=== PATIENT | female | born 1995 | race Caucasian/White ===

== ENCOUNTER 2019-03-29 13:25 | Inpatient (IN) | payer MEDICAID, OTHER ==
[2019-03-29] MEDS ORDERED: Carboprost Tromethamine 250 MCG/1 ML Amp IM PRN (14:03)
[2019-03-29] MEDS ORDERED: Lidocaine 1% 50 ML MDV INJECT PRN (14:03)
[2019-03-29] MEDS ORDERED: Sodium Chloride 0.9% 2.5 ML Syringe FLUSH PRN (14:03)
[2019-03-29] MEDS ORDERED: Methylergonovine 0.2 MG/1 ML Amp IM PRN (14:03)
[2019-03-29] MEDS ORDERED: Sodium Chloride 0.9% 10 ML Syringe FLUSH PRN (14:03)
[2019-03-29] MEDS ORDERED: Sodium Chloride 0.9% 10 ML SDV IV PRN (14:03)
[2019-03-29] MEDS ORDERED: Misoprostol 200 MCG Tab PO PRN (14:03)
[2019-03-29] MEDS ORDERED: Nalbuphine 10 MG/1 ML Vial IVPUSH PRN (14:03)
[2019-03-29] MEDS ORDERED: Water For Irrigation,Sterile 1,000 ML Container IRR PRN (14:03)
[2019-03-29] MEDS ORDERED: Tranexamic Acid 1,000 MG in Sodium Chloride 0.9% 100 ML IV PRN (14:03)
[2019-03-29] MEDS ORDERED: Butorphanol 1 MG/ML SDV IVPUSH PRN (14:03)
[2019-03-29] MEDS ORDERED: Oxytocin/0.9 % Sodium Chloride 30 UNIT/500 ML BAG IV SCH (14:15)
[2019-03-29] MEDS ORDERED: Lactated Ringers 1,000 ML IV SCH (14:15)
[2019-03-29] MEDS ORDERED: Oxytocin/0.9 % Sodium Chloride 30 UNIT/500 ML BAG ONE (15:05)
--- NOTE | 2019-03-29 16:24 | PCM.LDHP ---
L&D History of Present Illness - General Date of Service: 03/29/19 Admit Problem/Dx: Patient Status Order with Admit Dx/Problem 03/29/19 13:35 Patient Status [ADT] Routine Admission Diagnosis/Problem Admission Diagnosis/Problem 03/29/19 16:21 23yo EDC 03/26/2019 40 3/7wks Hx of at 2 days old[address] Christina in the clinic. Comes in active labor. O+, RI, GBS neg. Source of Information: Patient History Limitations: Reports: No Limitations - History of Present Illness Timing/Duration: Reports: minutes: Location, : Reports: Abdomen Quality: Reports: Stabbing Severity: Severe Improves with: Reports: None Worsens with: Reports: None Associated Symptoms: Reports: N - Related Data Allergies/Adverse Reactions: Allergies Allergy/AdvReac Type Severity Reaction Status Date / Time No Known Allergies Allergy Verified 03/29/19 14:01 Past Medical History - Past Health History Medical/Surgical History: Denies Medical/Surgical History [employer] History: Reports: Social & Family History - Tobacco Use Smoking Status *Q: Never Smoker - Caffeine Use Caffeine Use: Reports: Coffee, Tea - Recreational Drug Use Recreational Drug Use: No H&P Review of Systems - Review of Systems: Review Of Systems: See Below General: Reports: No Symptoms HEENT: Reports: No Symptoms Pulmonary: Reports: No Symptoms Cardiovascular: Reports: No Symptoms Gastrointestinal: Reports: No Symptoms Genitourinary: Reports: No Symptoms Musculoskeletal: Reports: No Symptoms Skin: Reports: No Symptoms Psychiatric: Reports: No Symptoms Neurological: Reports: No Symptoms Hematologic/Lymphatic: Reports: No Symptoms Immunologic: Reports: No Symptoms L&D Exam - Exam Exam: See Below - Vital Signs Weight: 63.503 kg - OB Specific Contraction Intensity: Strong Movement: Active Heart Tones: Present Heart Rate (FHR) Variability: Moderate (6-25 bmp) Presentation: Vertex - Dang Score Dang Score Cervix Position: Anterior Dang Score Consistency: Soft Dang Score Effacement: >80% Dang Score Dilation: > 5 cm Dang Score 's Station: -1 ,0 Dang Score Total: 12 - Exam General: Alert, Oriented, Cooperative HEENT: Hearing Intact Lungs: Normal Respiratory Effort GI/Abdominal Exam: Soft, Non-Tender, Pelvis Stable Rectal Exam: Deferred Genitourinary: Normal external exam, Normal bimanual exam, Cervical dilitation, Cervical fluid (AROM clear fluid) Back Exam: Normal Inspection, Full Range of Motion Extremities: Normal Inspection, Normal Range of Motion, Non-Tender, No Pedal Edema Skin: Warm, Dry, Intact Neurological: Cranial Nerves Intact, Strength Equal Bilateral, Normal Speech, Normal Tone, Sensation Intact Psychiatric: Alert, Normal Affect, Normal Mood - Patient Data Lab Results Last 24 hrs: Laboratory Results - last 24 hr 03/29/19 03/29/19 Range/Units 14:29 14:29 WBC 7.23 (4.0-11.0) K/uL RBC 3.69 L (4.30-5.90) M/uL Hgb 11.6 L (12.0-16.0) g/dL Hct 33.2 L (36.0-46.0) % MCV 90.0 (80.0-98.0) fL MCH 31.4 (27.0-32.0) pg MCHC 34.9 (31.0-37.0) g/dL RDW Std Deviation 43.1 (28.0-62.0) fl RDW Coeff of Nona 13 (11.0-15.0) % Plt Count 200 (150-400) K/uL MPV 10.70 (7.40-12.00) fL Nucleated RBC % 0.0 /100WBC Nucleated RBCs # 0 K/uL Blood Type O POSITIVE Antibody Screen NEGATIVE Result Diagrams: 03/29/19 14:29 - Problem List (1) Supervision of normal IUP (intrauterine ) in multigravida SNOMED Code(s): 363129349, 777623060, 034869937 ICD Code: Z34.80 - ENCOUNTER FOR SUPRVSN OF NORMAL , UNSP TRIMESTER Status: Acute Priority: High Current Visit: Yes Qualifiers: Trimester: third trimester Qualified Code(s): Z34.83 - Encounter for supervision of other normal , third trimester Problem List Initiated/Reviewed/Updated: Yes Orders Last 24hrs: Active Orders 24 hr Category Date Time Status Patient Status [ADT] Routine ADT 03/29/19 13:35 Active Heart Tones [RC] CONTINUOUS Care 03/29/19 14:08 Active Non Stress Test [RC] PER UNIT ROUTINE Care 03/29/19 14:08 Active May Shower [RC] ASDIRECTED Care 03/29/19 14:08 Active Notify Provider [RC] PRN Care 03/29/19 14:08 Active Up ad Meenakshi [RC] ASDIRECTED Care 03/29/19 14:08 Active Vaginal Exam [RC] PRN Care 03/29/19 14:08 Active Vital Signs [RC] PER UNIT ROUTINE Care 03/29/19 14:08 Active RAPID PLASMA REAGIN, QUANT [REF] Routine Lab 03/29/19 14:29 Received Butorphanol [Stadol] Med 03/29/19 14:03 Active 1 mg IVPUSH Q1H PRN Carboprost Tromethamine [Hemabate DS] Med 03/29/19 14:03 Active 250 mcg IM ASDIRECTED PRN Lactated Ringers [Ringers, Lactated] 1,000 ml Med 03/29/19 14:15 Active IV ASDIRECTED Lidocaine 1% [Xylocaine 1%] Med 03/29/19 14:03 Active 50 ml INJECT ONETIME PRN Methylergonovine [Methergine] Med 03/29/19 14:03 Active 0.2 mg IM ASDIRECTED PRN Nalbuphine [Nubain] Med 03/29/19 14:03 Active 10 mg IVPUSH Q1H PRN Oxytocin/0.9 % Sodium Chloride [Oxytocin 30 Unit/500 ML Med 03/29/19 14:15 Active -NS] 30 unit in 500 ml IV TITRATE Sodium Chloride 0.9% [Normal Saline] Med 03/29/19 14:03 Active 10 ml IV ASDIRECTED PRN Sodium Chloride 0.9% [Saline Flush] Med 03/29/19 14:03 Active 10 ml FLUSH ASDIRECTED PRN Sodium Chloride 0.9% [Saline Flush] Med 03/29/19 14:03 Active 2.5 ml FLUSH ASDIRECTED PRN Tranexamic Acid [Cyklokapron] 1,000 mg Med 03/29/19 14:03 Active Sodium Chloride 0.9% [Normal Saline] 100 ml IV ONETIME Water For Irrigation,Sterile [Sterile Water for Med 03/29/19 14:03 Active Irrigation] 1,000 ml IRR ASDIRECTED PRN miSOPROStol [Cytotec] Med 03/29/19 14:03 Active 200 mcg PO ONETIME PRN Scalp Electrode [WOMSER] Per Unit Routine Oth 03/29/19 14:08 Ordered Peripheral IV Insertion Adult [OM.PC] Routine Oth 03/29/19 14:08 Ordered Resuscitation Status Routine Resus Stat 03/29/19 14:03 Ordered Medication Orders Butorphanol Tartrate (Stadol) 1 mg IVPUSH Q1H PRN PRN Reason: Pain Carboprost Tromethamine (Hemabate Ds) 250 mcg IM ASDIRECTED PRN PRN Reason: Post Hemorrhage Lactated Ringer's (Ringers, Lactated) 1,000 mls @ 150 mls/hr IV ASDIRECTED ANDRES Last Admin: 03/29/19 15:00 Dose: 150 mls/hr Oxytocin/Sodium Chloride (Oxytocin 30 Unit/500 Ml-Ns) 30 unit in 500 mls @ 500 mls/hr IV TITRATE ANDRES Tranexamic Acid 1,000 mg/ (Sodium Chloride) 110 mls @ 660 mls/hr IV ONETIME PRN PRN Reason: Bleeding Lidocaine HCl (Xylocaine 1%) 50 ml INJECT ONETIME PRN PRN Reason: Laceration repair Methylergonovine Maleate (Methergine) 0.2 mg IM ASDIRECTED PRN PRN Reason: Post Hemorrhage Misoprostol (Cytotec) 200 mcg PO ONETIME PRN PRN Reason: Post Hemorrhage Nalbuphine HCl (Nubain) 10 mg IVPUSH Q1H PRN PRN Reason: Pain (severe 7-10) Sodium Chloride (Saline Flush) 10 ml FLUSH ASDIRECTED PRN PRN Reason: Keep Vein Open Sodium Chloride (Saline Flush) 2.5 ml FLUSH ASDIRECTED PRN PRN Reason: Keep Vein Open Sodium Chloride (Normal Saline) 10 ml IV ASDIRECTED PRN PRN Reason: IV Use Sterile Water (Sterile Water For Irrigation) 1,000 ml IRR ASDIRECTED PRN PRN Reason: delivery Assessment/Plan Comment:: Admit labor A: 23yo EDC 03/26/2019 40 3/7wks Hx of infant at 2 days old[address] by [address] Christina in the clinic. Comes in active labor. O+, RI, GBS neg. P: Admit, anticipate , DR Christina updated
--- NOTE | 2019-03-29 16:59 | PCM.DEL ---
L & D Note - General Info Date of Service: 03/29/19 Mother's Due Date: 03/26/19 - Delivery Note Labor: Spontaneous Delivery Outcome: Livebirth Infant Delivery Method: Spontaneous Vaginal Delivery-Single Delivery Mode: Spontaneous Presentation: Vertex Nuchal Cord: Present (delivered through) Anesthesia Type: None Amniotic Fluid Description: Clear Episiotomy Type: None Laceration: None Placenta: Intact, Spontaneous Cord: 3 Vessels Estimated Blood Loss: 100 Resuscitation Needed: No Score 1 min: 8 Score 5 min: 9 Second Stage Interventions: Reports: Pushing Effectively Delivery Comments (Free Text/Narrative):: of viable male delivered with good pushing, Head delivered and nuchal x1 noted but due to pushing delivered through, shoulders and body followed. to mothers abd with RN at for evaluation. Spont cry. Delayed cord clamping. Pitocin to IVF. Cord clamped and cut. Cord blood collected. Placenta delivered grossly intact. Inspection noted intact perineum. EBL 100cc, APGARS 8/ 9, WT: 6lb 7oz. Mother and baby left in stable condition for recovery. - General Info Date of Service: 03/29/19 Admission Dx/Problem (Free Text): Patient Status Order with Admit Dx/Problem 03/29/19 13:35 Patient Status [ADT] Routine Admission Diagnosis/Problem Admission Diagnosis/Problem 03/29/19 16:21 23yo EDC 03/26/2019 40 3/7wks Hx of at 2 days old[address] by [address] Christina in the clinic. Comes in active labor. O+, RI, GBS neg. Functional Status: Reports: Pain Controlled, Tolerating Diet - Review of Systems General: Reports: No Symptoms HEENT: Reports: No Symptoms Pulmonary: Reports: No Symptoms Cardiovascular: Reports: No Symptoms Gastrointestinal: Reports: No Symptoms Genitourinary: Reports: No Symptoms Musculoskeletal: Reports: No Symptoms Skin: Reports: No Symptoms Neurological: Reports: No Symptoms Psychiatric: Reports: No Symptoms - Patient Data Weight - Most Recent: 63.503 kg Lab Results Last 24 Hours: Laboratory Results - last 24 hr 03/29/19 03/29/19 Range/Units 14:29 14:29 WBC 7.23 (4.0-11.0) K/uL RBC 3.69 L (4.30-5.90) M/uL Hgb 11.6 L (12.0-16.0) g/dL Hct 33.2 L (36.0-46.0) % MCV 90.0 (80.0-98.0) fL MCH 31.4 (27.0-32.0) pg MCHC 34.9 (31.0-37.0) g/dL RDW Std Deviation 43.1 (28.0-62.0) fl RDW Coeff of Nona 13 (11.0-15.0) % Plt Count 200 (150-400) K/uL MPV 10.70 (7.40-12.00) fL Nucleated RBC % 0.0 /100WBC Nucleated RBCs # 0 K/uL Blood Type O POSITIVE Antibody Screen NEGATIVE Med Orders - Current: Current Medications Butorphanol Tartrate (Stadol) 1 mg IVPUSH Q1H PRN PRN Reason: Pain Carboprost Tromethamine (Hemabate Ds) 250 mcg IM ASDIRECTED PRN PRN Reason: Post Hemorrhage Lactated Ringer's (Ringers, Lactated) 1,000 mls @ 150 mls/hr IV ASDIRECTED [facility] Last Admin: 03/29/19 15:00 Dose: 150 mls/hr Oxytocin/Sodium Chloride (Oxytocin 30 Unit/500 Ml-Ns) 30 unit in 500 mls @ 500 mls/hr IV TITRATE [facility] Last Admin: 03/29/19 16:41 Dose: 500 mls/hr Tranexamic Acid 1,000 mg/ (Sodium Chloride) 110 mls @ 660 mls/hr IV ONETIME PRN PRN Reason: Bleeding Lidocaine HCl (Xylocaine 1%) 50 ml INJECT ONETIME PRN PRN Reason: Laceration repair Methylergonovine Maleate (Methergine) 0.2 mg IM ASDIRECTED PRN PRN Reason: Post Hemorrhage Misoprostol (Cytotec) 200 mcg PO ONETIME PRN PRN Reason: Post Hemorrhage Nalbuphine HCl (Nubain) 10 mg IVPUSH Q1H PRN PRN Reason: Pain (severe 7-10) Sodium Chloride (Saline Flush) 10 ml FLUSH ASDIRECTED PRN PRN Reason: Keep Vein Open Sodium Chloride (Saline Flush) 2.5 ml FLUSH ASDIRECTED PRN PRN Reason: Keep Vein Open Sodium Chloride (Normal Saline) 10 ml IV ASDIRECTED PRN PRN Reason: IV Use Sterile Water (Sterile Water For Irrigation) 1,000 ml IRR ASDIRECTED PRN PRN Reason: delivery Discontinued Medications Oxytocin/Sodium Chloride (Oxytocin 30 Unit/500 Ml-Ns) Confirm Administered Dose 30 unit in 500 mls @ as directed .ROUTE .[facility] ONE Stop: 03/29/19 15:06 - Exam General: Alert, Oriented, Cooperative Lungs: Normal Respiratory Effort GI/Abdominal Exam: Soft, Non-Tender (Female) Exam: Normal External Exam, Normal Speculum Exam, Vaginal Bleeding. No: Vaginal Lesions, Vaginal Tears Back Exam: Normal Inspection, Full Range of Motion Extremities: Normal Inspection, Normal Range of Motion, Non-Tender, No Pedal Edema Skin: Warm, Dry, Intact Neurological: No New Focal Deficit, Normal Speech, Normal Tone, Strength Equal Bilateral, Sensation Intact Psy/Mental Status: Alert, Normal Affect, Normal Mood - Problem List & Annotations (1) Supervision of normal IUP (intrauterine ) in multigravida SNOMED Code(s): 695796304, 913554741, 813276576 Code(s): Z34.80 - ENCOUNTER FOR SUPRVSN OF NORMAL , UNSP TRIMESTER Status: Acute Priority: High Current Visit: Yes Qualifiers: Trimester: third trimester Qualified Code(s): Z34.83 - Encounter for supervision of other normal , third trimester (2) (normal spontaneous vaginal delivery) SNOMED Code(s): 89741369, 480025140 Code(s): O80 - ENCOUNTER FOR FULL-TERM UNCOMPLICATED DELIVERY Status: Acute Priority: High Current Visit: Yes - Problem List Review Problem List Initiated/Reviewed/Updated: Yes - Plan Plan:: Admit labor A: 23yo EDC 03/26/2019 40 3/7wks Hx of infant at 2 days old[address] by [address] Christina in the clinic. Comes in active labor. O+, RI, GBS neg. P: Admit, anticipate , DR Christina updated Delivery A: of viable male, APGARS 8/9, Wt: 6lb 7oz. EBL 100cc, intact perineum. Stable P: Routine pp plan of care.
[2019-03-29] MEDS ORDERED: Bisacodyl 10 MG Supp RECTAL PRN (17:06)
[2019-03-29] MEDS ORDERED: Witch Hazel Medicated Pads 40/Jar TOP PRN (17:06)
[2019-03-29] MEDS ORDERED: Ibuprofen 400 MG Tab PO PRN (17:06)
[2019-03-29] MEDS ORDERED: Docusate Sodium 100 MG Cap PO PRN (17:06)
[2019-03-29] MEDS ORDERED: Acetaminophen 500 MG Tab PO PRN (17:06)
[2019-03-29] MEDS ORDERED: oxyCODONE 5 MG Tab PO PRN (17:06)
[2019-03-29] MEDS ORDERED: Lanolin 100% Cream 7 GM Tube TOP PRN (17:06)
[2019-03-29] MEDS ORDERED: Benzocaine/Menthol 20%-0.5% Spray 78 GM Cannister TOP PRN (17:06)
[2019-03-29] MEDS: Ibuprofen 800 MG Tab PO PRN (19:54)
[2019-03-29] MEDS: Acetaminophen 500 MG Tab PO PRN (19:56)
[2019-03-30] MEDS: Acetaminophen 500 MG Tab PO PRN (04:02)
--- NOTE | 2019-03-30 07:41 | PCM.DCSUM1 ---
Discharge Summary - Hospital Course Free Text/Narrative:: Discharge home with . Follow up in 6 weeks for . Diagnosis: Stroke: No - Discharge Data Discharge Date: 03/30/19 Discharge Disposition: Home, Self-Care 01 Condition: Good - Referral to Home Health Primary Care Physician: PCP Unknown - Discharge Diagnosis/Problem(s) (1) Supervision of normal IUP (intrauterine ) in multigravida SNOMED Code(s): 002797430, 965769401, 708546672 ICD Code: Z34.80 - ENCOUNTER FOR SUPRVSN OF NORMAL , UNSP TRIMESTER Status: Acute Priority: High Current Visit: Yes Qualifiers: Trimester: third trimester Qualified Code(s): Z34.83 - Encounter for supervision of other normal , third trimester (2) (normal spontaneous vaginal delivery) SNOMED Code(s): 32285512, 679039463 ICD Code: O80 - ENCOUNTER FOR FULL-TERM UNCOMPLICATED DELIVERY Status: Acute Priority: High Current Visit: Yes - Patient Summary/Data Consults: Consultations 03/30/19 04:00 Consult to Case Management/Sports Lawyer [CONS] Routine - Patient Instructions Diet: Usual Diet as Tolerated Activity: As Tolerated, No Strenuous Activities, Rest and Relax Today Driving: May Drive Today Showering/Bathing: May Shower Notify Provider of: Fever, Increased Pain, Swelling and Redness, Nausea and/or Vomiting Other/Special Instructions: Discharge home with infant. Follow up in 6 weeks for . - Discharge Plan *PRESCRIPTION DRUG MONITORING PROGRAM REVIEWED*: Not Applicable *COPY OF PRESCRIPTION DRUG MONITORING REPORT IN PATIENT CHRISTIANO: Not Applicable Oxygen Therapy Mode: Room Air - Discharge Summary/Plan Comment DC Time >30 min.: Yes Discharge Summary/Plan Comment: Discharge home with infant. Follow up in 6 weeks for . - General Info Date of Service: 03/30/19 Admission Dx/Problem (Free Text: Patient Status Order with Admit Dx/Problem 03/29/19 13:35 Patient Status [ADT] Routine Admission Diagnosis/Problem Admission Diagnosis/Problem 03/29/19 16:21 23yo EDC 03/26/2019 40 3/7wks Hx of infant at 2 days old[address] by [address] Christina in the clinic. Comes in active labor. O+, RI, GBS neg. Functional Status: Reports: Pain Controlled, Tolerating Diet, Ambulating, Urinating - Review of Systems General: Reports: No Symptoms HEENT: Reports: No Symptoms Pulmonary: Reports: No Symptoms Cardiovascular: Reports: No Symptoms Gastrointestinal: Reports: No Symptoms Genitourinary: Reports: No Symptoms Musculoskeletal: Reports: No Symptoms Skin: Reports: No Symptoms Neurological: Reports: No Symptoms Psychiatric: Reports: No Symptoms - Patient Data Vitals - Most Recent: Last Vital Signs Temp 36.2 C 03/30/19 04:18 Pulse 67 03/30/19 04:18 Resp 16 03/30/19 04:18 BP 112/73 03/30/19 04:18 Pulse Ox 97 03/30/19 04:18 Weight - Most Recent: 63.503 kg Lab Results - Last 24 hrs: Laboratory Results - last 24 hr 03/29/19 03/29/19 Range/Units 14:29 14:29 WBC 7.23 (4.0-11.0) K/uL RBC 3.69 L (4.30-5.90) M/uL Hgb 11.6 L (12.0-16.0) g/dL Hct 33.2 L (36.0-46.0) % MCV 90.0 (80.0-98.0) fL MCH 31.4 (27.0-32.0) pg MCHC 34.9 (31.0-37.0) g/dL RDW Std Deviation 43.1 (28.0-62.0) fl RDW Coeff of Nona 13 (11.0-15.0) % Plt Count 200 (150-400) K/uL MPV 10.70 (7.40-12.00) fL Nucleated RBC % 0.0 /100WBC Nucleated RBCs # 0 K/uL Blood Type O POSITIVE Antibody Screen NEGATIVE Med Orders - Current: Current Medications Acetaminophen (Tylenol Extra Strength) 500 mg PO Q4H PRN PRN Reason: Pain Acetaminophen (Tylenol Extra Strength) 1,000 mg PO Q4H PRN PRN Reason: Pain Last Admin: 03/30/19 04:02 Dose: 1,000 mg Benzocaine/Menthol (Dermoplast Pain Relief 20%-0.5% [place]) 78 gm TOP ASDIRECTED PRN PRN Reason: Perineal Comfort Measure Last Admin: 03/29/19 19:58 Dose: 78 gm Bisacodyl (Dulcolax) 10 mg RECTAL ONETIME PRN PRN Reason: Constipation Docusate Sodium (Colace) 100 mg PO BID PRN PRN Reason: Constipation Last Admin: 03/29/19 19:57 Dose: 100 mg Emollient Ointment (Lansinoh Hpa) 0 gm TOP ASDIRECTED PRN PRN Reason: Sore Nipples Last Admin: 03/29/19 19:59 Dose: 7 gm Ibuprofen (Motrin) 400 mg PO Q4H PRN PRN Reason: Pain Ibuprofen (Motrin) 800 mg PO Q6H PRN PRN Reason: Pain Last Admin: 03/29/19 19:54 Dose: 800 mg Oxycodone HCl (Oxycodone) 5 mg PO Q2H PRN PRN Reason: Pain Witch Elyssa (Tucks) 1 pad TOP ASDIRECTED PRN PRN Reason: comfort care Last Admin: 03/29/19 19:58 Dose: 1 pad Discontinued Medications Butorphanol Tartrate (Stadol) 1 mg IVPUSH Q1H PRN PRN Reason: Pain Carboprost Tromethamine (Hemabate Ds) 250 mcg IM ASDIRECTED PRN PRN Reason: Post Hemorrhage Lactated Ringer's (Ringers, Lactated) 1,000 mls @ 150 mls/hr IV ASDIRECTED [facility] Last Admin: 03/29/19 15:00 Dose: 150 mls/hr Oxytocin/Sodium Chloride (Oxytocin 30 Unit/500 Ml-Ns) 30 unit in 500 mls @ 500 mls/hr IV TITRATE [facility] Last Admin: 03/29/19 16:41 Dose: 500 mls/hr Tranexamic Acid 1,000 mg/ (Sodium Chloride) 110 mls @ 660 mls/hr IV ONETIME PRN PRN Reason: Bleeding Oxytocin/Sodium Chloride (Oxytocin 30 Unit/500 Ml-Ns) Confirm Administered Dose 30 unit in 500 mls @ as directed .ROUTE .[facility] ONE Stop: 03/29/19 15:06 Lidocaine HCl (Xylocaine 1%) 50 ml INJECT ONETIME PRN PRN Reason: Laceration repair Methylergonovine Maleate (Methergine) 0.2 mg IM ASDIRECTED PRN PRN Reason: Post Hemorrhage Misoprostol (Cytotec) 200 mcg PO ONETIME PRN PRN Reason: Post Hemorrhage Nalbuphine HCl (Nubain) 10 mg IVPUSH Q1H PRN PRN Reason: Pain (severe 7-10) Sodium Chloride (Saline Flush) 10 ml FLUSH ASDIRECTED PRN PRN Reason: Keep Vein Open Sodium Chloride (Saline Flush) 2.5 ml FLUSH ASDIRECTED PRN PRN Reason: Keep Vein Open Sodium Chloride (Normal Saline) 10 ml IV ASDIRECTED PRN PRN Reason: IV Use Sterile Water (Sterile Water For Irrigation) 1,000 ml IRR ASDIRECTED PRN PRN Reason: delivery - Exam General: Reports: Alert, Oriented, Cooperative, No Acute Distress Lungs: Reports: Normal Respiratory Effort GI/Abdominal Exam: Soft, Pelvis Stable (Female) Exam: Deferred, Vaginal Bleeding Rectal (Female) Exam: Deferred Back Exam: Reports: Full Range of Motion Extremities: Normal Range of Motion, Non-Tender, No Pedal Edema Skin: Reports: Warm, Dry, Intact Neurological: Reports: No New Focal Deficit, Normal Speech, Normal Tone, Strength Equal Bilateral Psy/Mental Status: Reports: Alert, Normal Affect, Normal Mood
[2019-03-30] MEDS: Ibuprofen 800 MG Tab PO PRN (16:04)
== END 2019-03-30 18:52 | disposition home or self-care (01) | DRG 807 ==
LOC: MW.OB 13:25 → OBSVTOIN 13:25 → MW.OB 20:20
PROVIDERS: ADMIT Obstetrics & Gynecology; ATTEND Obstetrics & Gynecology
PROC: 10E0XZZ Delivery of Products of Conception, External Approach (ICD-10-PCS; principal; 2019-03-29)
PROC: 10907ZC Drainage of Amniotic Fluid, Therapeutic from Products of Conception, Via Natural or Artificial Opening (ICD-10-PCS; 2019-03-29)
DX: O48.0 Post-term pregnancy (principal); Z37.0 Single live birth; Z3A.40 40 weeks gestation of pregnancy; O69.81X0 Labor and delivery complicated by cord around neck, without compression, not applicable or unspecified
CPT/HCPCS: 36415; 59025; 59409; 85027; 86593; 86850; 86900; 86901; A9270-GY; J2590; J7120